=== PATIENT | male | born 1965 | race Caucasian/White ===

== ENCOUNTER 2019-12-23 19:32 | Emergency (ER) | payer BC, SELFPAY ==
--- NOTE | ~2019-12-23 | XR_ITS ---
EXAMINATION: XR chest 2V DATE: 12/23/2019 20:08 INDICATION: Chest tightness. TECHNIQUE: Frontal and lateral views of the chest were obtained. COMPARISON: Chest 2 views 04/02/2019, chest CT 04/19/2018 FINDINGS: The lungs are hyperexpanded, consistent with emphysema. No pleural effusion or pneumothorax . The heart size is normal. IMPRESSION: 1. Emphysema. Reviewed, dictated and finalized at location A. IMPRESSION: 1. Emphysema.
[2019-12-23 19:33] VITALS: BP 156/95; PULSE 97; RESP 22; TEMP 36.9; O2SAT 100
--- NOTE | 2019-12-23 19:33 | ECG_ITS ---
Measurements Intervals [place] Rate: 96 P: 105 W[place]: 159 QRS: 54 QRSD: 100 T: 73 QT: 330 QTc: 418 Interpretive Statements SINUS RHYTHM WITH SINUS ARRHYTHMIA NORMAL ECG Electronically Signed On 12-24-2019 6:58:40 CDT by Judd Engel D.O.
[2019-12-23 19:44] VITALS: BP 144/96; PULSE 94; RESP 20; TEMP 37; O2SAT 96
[2019-12-23 19:45] LABS: Basophils Percent Auto 0.6 % (0.2-1.2); Eosinophils Percent Auto 0.4 % (0-4.4); Hematocrit 49.1 % (42.0-52.0); Hemoglobin 16.3 g/dL (14.0-18.0); Immature Granulocyte Absolute 0.02 K/mm3 (0.00-0.031); Immature Granulocyte Percent A 0.3 % (0-0.5); Lymphocytes Absolute Auto 1.06 K/mm3 (0.9-3.2); Lymphocytes Percent Auto 14.9 % (18.3-44.2); Mean Corpuscular HGB Conc 33.2 g/dl (32-36); Mean Corpuscular Hemoglobin 29.7 pg (26-34); Mean Corpuscular Volume 89.6 fl (80-100); Mean Platelet Volume 9.8 fl (7.4-10.4); Monocytes Absolute Auto 0.5 K/mm3 (0.1-0.6); Monocytes Percent Auto 6.5 % (2.6-8.5); Neutrophils Absolute Auto 5.5 K/mm3 (1.3-6.7); Neutrophils Percent Auto 77.3 % (45.5-73.1); Platelet Count Result 229 k/mm3 (150-375); Red Blood Count 5.48 M/mm3 (4.6-6.20); White Blood Count 7.1 K/mm3 (4.5-10.0)
[2019-12-23 19:55] LABS: Prothrombin Time 12.9 Seconds (11.1-14.7)
[2019-12-23 19:56] LABS: Partial Thromboplastin Time 25.2 SECONDS (22.3-36.8)
[2019-12-23 19:57] LABS: Blood Urea Nitrogen 14 mg/dL (9-20); Calcium 9.5 mg/dL (8.4-10.2); Carbon Dioxide 28 mmol/L (22-30); Chloride 103 mmol/L (98-107); Estimated CRCL calculation 72 ml/min; Estimated Glomerular Filt Rate > 60; Glucose 86 mg/dL (75-110); Potassium 3.3 mmol/L (3.4-5.0); Sodium 139 mmol/L (137-145)
[2019-12-23] MEDS: ASPIRIN 81 MG CHEWABLE TABLET 324 MG PO (20:07)
[2019-12-23 20:08] LABS: Troponin I < 0.012 ng/mL (0.000-0.034)
--- NOTE | 2019-12-23 20:31 | ED.CHESTPAIN ---
HPI - Chest Pain General Chief Complaint: Chest Pain Stated Complaint: chest pain Time Seen by Provider: 12/23/19 20:22 Source: patient Mode of arrival: ambulatory Limitations: no limitations History of Present Illness HPI narrative: Patient is 54 years old white male presents with intermittent chest tightness, tingling and numbness of the upper and lower extremities for the last 4 days, got worse 3 hours prior to arrival. Patient have a lot of stress lately. Got kicked out by his kids because no room at home for him . Patient been homeleSS for the last 2 weeks. ptient telling me that he woke up with hyperventilation. . Patient denies any fever, chills, nausea, vomiting, COVID-19 exposure. Related Data Home Medications Medication Instructions Recorded Confirmed esomeprazole magnesium 20 mg 20 mg PO DAILY 06/30/19 capsule,delayed release folic acid 1 mg tablet 1 mg PO DAILY 06/30/19 tamsulosin 0.4 mg capsule 0.4 mg PO DAILY 06/30/19 aspirin 325 mg tablet 81 mg PO DAILY tablet 07/01/19 Allergies Allergy/AdvReac Type Severity Reaction Status Date / Time No Known Allergies Allergy Verified 07/01/19 14:29 Review of Systems Review of Systems: Narrative: CONSTITUTIONAL: Denies fever, chills, or sweats. EYES: Denies visual changes, redness, or discharge. ENT: Denies rhinorrhea, congestion, sore throat, or otalgia. CARDIOVASCULAR: Chest pain RESPIRATORY: Denies cough or dyspnea. GASTROINTESTINAL: Denies abdominal pain, nausea, vomiting, or diarrhea. GENITOURINARY: Denies dysuria or hematuria. SKIN: Denies rash or itching. MUSCULOSKELETAL: Denies back pain, joint pain, or myalgia. NEUROLOGIC: Denies headache, numbness, or weakness. PSYCHIATRIC: Denies anxiety or depression. PMFSH Past Medical History Medical History Tobacco abuse counseling Social History Social History Social History: pt stated smoke a pack and a half a day Smoking status: Heavy tobacco smoker Smoking end date: 07/15/13 Gender identity (if verbalized by the patient): Male Exam Narrative: Exam Narrative: General appearance: Well-developed, well-nourished Skin: Normal color Head: Normocephalic, nontraumatic Eyes: Clear conjunctiva ENT: Oropharynx normal, ears normal, nose normal Neck: Supple, nontender Chest and respiratory: Airway patent, no respiratory distress, no accessory muscle use Heart: Regular rate/rhythm Abdomen: Soft, nontender, no organomegaly, quiet bowel sounds Vascular: Normal peripheral pulses, normal capillary refill. Musculoskeletal: Normal range of motion, nontender back Neurologic: Alert and oriented ?3, [employer] is normal as tested, no gross motor deficit Course Course Emergency Course: Slightly improving. Vital Signs Vital signs: Vital Signs Temperature 36.9 C 12/23/19 19:33 Pulse Rate 97 12/23/19 19:33 Respiratory Rate 22 H 12/23/19 19:33 Blood Pressure 156/95 H 12/23/19 19:33 Pulse Oximetry 100 12/23/19 19:33 Temperature 37.0 C 12/23/19 19:44 Pulse Rate 89 12/23/19 21:23 Respiratory Rate 20 12/23/19 21:23 Blood Pressure 134/95 H 12/23/19 21:23 Pulse Oximetry 99 12/23/19 21:23 MDM - Chest Pain MDM Narrative Medical decision making narrative: Hyperventilation syndrome is my concern. Labs, EKG, chest x-ray ordered. Further plan to follow Differential Diagnosis Differential diagnosis: Likely stable angina, atypical chest pain, chest pain and other (Anxiety related symptoms) Lab Data Result diagrams: 12/23/19 19:37 12/23/19 19:37 Labs: Lab Results 06
[2019-12-23 21:00] LABS: Alveolar/Arterial O2 Gradient 26.4 mmHg; Base Excess ABG 1.6 mEq/l (+/-2.0); Fractional Inspired Oxygen 21 %; HCO3 ABG 21.5 mEq/l (22.0-26.0); Oxygen Content ABG 21.1 %vol (16.0-22.0); Oxygen Saturation ABG 98.2 % (95.0-100.0); PO2 FiO2 Ratio Arterial Blood 4.52 %; Total Hemoglobin 16.1 g/dL (12.0-18.0)
[2019-12-23 21:01] LABS: Device ROOM AIR; Modified Allen's Test Pass; PCO2 ABG 23.7 mmHg (35.0-45.0); Site Drawn LEFT RADIAL; pH ABG 7.576 (7.350-7.450)
[2019-12-23] MEDS: LORAZEPAM INJ 2 MG/ML VIAL 1 MG IV PUSH (21:22)
[2019-12-23 21:23] VITALS: BP 134/95; PULSE 89; RESP 20; O2SAT 99
--- NOTE | 2019-12-23 21:46 | PC.NURSE ---
while preparing for discharge patient told md that he has no home or no money for hotel upon discharge. patient received ativan and erp states that patient must wait 4 hours to be able to drive. patient reports there is no one to pick him up. will provide information about homeless shelters at discharge
[2019-12-24 00:03] VITALS: BP 128/88; PULSE 80; RESP 19; O2SAT 100
[2019-12-24 00:46] VITALS: BP 130/96; PULSE 85; RESP 19; O2SAT 100
[2019-12-24 00:54] VITALS: BP 130/96; PULSE 79; RESP 19; TEMP 36.8; O2SAT 100
== END 2019-12-24 00:56 | disposition home or self-care (01) ==
PROVIDERS: Emergency Medicine; Emergency Provider Emergency Medicine; PCP Family Medicine
DX: F45.8 Other somatoform disorders (principal); F43.20 Adjustment disorder, unspecified; F17.210 Nicotine dependence, cigarettes, uncomplicated; J43.9 Emphysema, unspecified; Z79.82 Long term (current) use of aspirin
CPT/HCPCS: 36415; 36600; 71046; 80048; 82805; 84484; 85025; 85610; 85730; 93005; 96374; 99284; A9270; J2060

== ENCOUNTER 2019-12-25 06:44 | Emergency (ER) | payer SELFPAY ==
--- NOTE | ~2019-12-25 | XR_ITS ---
EXAMINATION: XR chest 1V portable DATE: 12/25/2019 08:30 INDICATION: Shortness of breath TECHNIQUE: frontal view of the chest was obtained. COMPARISON: Chest radiograph dated 12/23/2019 FINDINGS: Mild hyperexpansion of lungs consistent with emphysema which is better appreciated on chest CT dated 04/19/2018. No focal airspace opacities, pulmonary edema, pleural effusion or pneumothorax. The cardio mediastinal silhouette is normal. Visualized bones and soft tissues are unremarkable. IMPRESSION: 1. Emphysema. No acute cardiopulmonary disease. Reviewed, dictated and finalized at location A.
[2019-12-25 06:50] VITALS: BP 130/88; PULSE 100; RESP 20; TEMP 36.5; O2SAT 99
--- NOTE | 2019-12-25 07:18 | ECG_ITS ---
Measurements Intervals [place] Rate: 97 P: 84 MT: 143 QRS: 53 QRSD: 88 T: 75 QT: 346 QTc: 441 Interpretive Statements SINUS RHYTHM NORMAL ECG Electronically Signed On 12-25-2019 7:22:36 CDT by Judd Engel D.O.
[2019-12-25] MEDS: ALPRAZOLAM 0.25 MG TABLET PO (07:26)
--- NOTE | 2019-12-25 07:28 | ED.SOB ---
HPI - SOB/Dyspnea General Chief Complaint: Shortness of Breath/Dyspnea Stated Complaint: Shortness of breath Time Seen by Provider: 12/25/19 07:02 Source: patient Mode of arrival: ambulatory Limitations: no limitations History of Present Illness HPI Narrative: This patient is a 54 year old male who presents with complaints of hyperventilating. He states he was here 2 days ago with similar symptoms and he was diagnosed with anxiety and hyperventilating syndrome. He was prescribed clonazepam at that time but he did not get this prescription filled. He states he went to sleep around 2 am last night feeling fine, and he woke up at 6 am feeling like he could not catch his breath. This has made him hyperventilate and he has bandlike feeling around his chest making his feel as if his lungs are constricted. He is anxious. He denies associated fever, cough, nausea, vomiting or diaphoresis. He states he is feeling better. He is recently homeless and he has been sleeping in his son's semi truck. MD elicited complaint: shortness of breath and anxiety Pertinent past history: COPD Timing: improved Known history of: COPD Associated symptoms: chest pain and sense of impending doom Related Data Home oxygen amount: none Home Medications Medication Instructions Recorded Confirmed esomeprazole magnesium 20 mg 20 mg PO DAILY 06/30/19 capsule,delayed release folic acid 1 mg tablet 1 mg PO DAILY 06/30/19 tamsulosin 0.4 mg capsule 0.4 mg PO DAILY 06/30/19 aspirin 325 mg tablet 81 mg PO DAILY tablet 07/01/19 Allergies Allergy/AdvReac Type Severity Reaction Status Date / Time No Known Allergies Allergy Verified 07/01/19 14:29 Review of Systems Review of Systems: Narrative: CONSTITUTIONAL: Denies fever, chills, or sweats. EYES: Denies visual changes, redness, or discharge. ENT: Denies rhinorrhea, congestion, sore throat, or otalgia. CARDIOVASCULAR: Denies , palpitations, or edema. RESPIRATORY: Denies cough . GASTROINTESTINAL: Denies abdominal pain, nausea, vomiting, or diarrhea. GENITOURINARY: Denies dysuria or hematuria. SKIN: Denies rash or itching. MUSCULOSKELETAL: Denies back pain, joint pain, or myalgia. NEUROLOGIC: Denies headache, numbness, or weakness. PSYCHIATRIC: Denies depression. [facility] Social History Social History Social History: pt stated smoke a pack and a half a day Smoking status: Heavy tobacco smoker Smoking end date: 07/15/13 Gender identity (if verbalized by the patient): Male Exam Narrative: Exam Narrative: GENERAL: Well-appearing, well-nourished, and in no acute distress. HEAD: Normocephalic, atraumatic EYES: PERRLA and EOMI, conjunctiva clear without discharge THROAT:Mucous membranes moist, Oropharynx normal without erythema, exudate, peritonsillar swelling or fluctuance NECK: Supple, without lymphadenopathy or mass RESPIRATORY: hyperventilating, Airway patent, Respirations non-labored, Clear to auscultation without rales, rhonchi or wheeze HEART: Regular rate and rhythm. No murmur heard. Normal peripheral pulses. ABDOMEN: Soft, nontender, nondistended, normal active bowel sounds. No masses. No rebound or guarding, No organomegaly. EXTREMITIES: No edema, normal strength with full range of motion. SKIN: Warm, dry, normal color without rash NEURO: Alert and oriented x3. CN 2-12 grossly intact. No focal deficits. PSYCH: anxious hyperventilating Course Reevaluation(s) Reevaluation #1: Patient states he feels much better. He is no longer hyperventilating. Date: 12/25/19 Time: 08:59 Reevaluation #2: Patient has no symptoms. This does appear to be anxiety . He will follow up with PCP Date: 12/25/19 Time: 10:28 Vital Signs Vital signs: Vital Signs Temperature 97.7 F 12/25/19 06:50 Pulse Rate 100 12/25/19 06:50 Respiratory Rate 20 12/25/19 06:50 Blood Pressure 130/88 12/25/19 06:50 Pulse Oximetry 99
[2019-12-25 07:45] VITALS: PULSE 85
[2019-12-25 07:46] LABS: Basophils Percent Auto 0.6 % (0.2-1.2); Eosinophils Absolute Auto 0.1 K/mm3 (0-0.3); Eosinophils Percent Auto 1.2 % (0-4.4); Hematocrit 46.4 % (42.0-52.0); Hemoglobin 15.9 g/dL (14.0-18.0); Immature Granulocyte Absolute 0.02 K/mm3 (0.00-0.031); Immature Granulocyte Percent A 0.4 % (0-0.5); Lymphocytes Absolute Auto 0.77 K/mm3 (0.9-3.2); Lymphocytes Percent Auto 15.7 % (18.3-44.2); Mean Corpuscular HGB Conc 34.3 g/dl (32-36); Mean Corpuscular Hemoglobin 29.8 pg (26-34); Mean Corpuscular Volume 86.9 fl (80-100); Mean Platelet Volume 9.8 fl (7.4-10.4); Monocytes Absolute Auto 0.5 K/mm3 (0.1-0.6); Monocytes Percent Auto 9.2 % (2.6-8.5); Neutrophils Absolute Auto 3.6 K/mm3 (1.3-6.7); Neutrophils Percent Auto 72.9 % (45.5-73.1); Platelet Count Result 219 k/mm3 (150-375); Red Blood Count 5.34 M/mm3 (4.6-6.20); Red Cell Distribution Width 12.8 % (11.5-14.5); White Blood Count 4.9 K/mm3 (4.5-10.0)
[2019-12-25 07:56] LABS: Partial Thromboplastin Time 25.8 SECONDS (22.3-36.8); Prothrombin Time 12.7 Seconds (11.1-14.7)
[2019-12-25 08:00] LABS: D Dimer 0.27 ug/mL (<0.48)
[2019-12-25 08:02] LABS: Alanine Aminotransferase 12 U/L (4-50); Albumin Level 4.2 g/dL (3.5-5.1); Alkaline Phosphatase 102 U/L (38-126); Aspartate Amino Transferase 21 U/L (17-59); Bilirubin,Total 0.5 mg/dL (0.2-1.3); Blood Urea Nitrogen 18 mg/dL (9-20); Calcium 9.2 mg/dL (8.4-10.2); Carbon Dioxide 22 mmol/L (22-30); Chloride 107 mmol/L (98-107); Estimated Glomerular Filt Rate > 60; Glucose 104 mg/dL (75-110); Potassium 3.8 mmol/L (3.4-5.0); Sodium 137 mmol/L (137-145)
[2019-12-25 08:13] LABS: Troponin I < 0.012 ng/mL (0.000-0.034)
[2019-12-25 08:57] VITALS: BP 152/93; PULSE 74; RESP 18; O2SAT 99
[2019-12-25 10:13] LABS: Troponin I < 0.012 ng/mL (0.000-0.034)
== END 2019-12-25 10:45 | disposition home or self-care (01) ==
PROVIDERS: Emergency Provider General Practice; PCP Family Medicine
DX: R06.00 Dyspnea, unspecified (principal); J43.9 Emphysema, unspecified; F17.210 Nicotine dependence, cigarettes, uncomplicated
CPT/HCPCS: 36415; 71045; 80053; 84484; 85025; 85380; 85610; 85730; 93005; 99284; A9270